=== PATIENT | male | born 1960 | race Caucasian/White ===

== ENCOUNTER → 2016-12-19 | Outpatient (CLI) | payer MEDICARE, MEDICAID ==
[~2016-12-19] MED LIST: ALBU17IN2 INH; DOCU10CA PO; KLON0.5T PO; LITH600C PO; PROZ10CA7 PO; RANI15TA PO; TIMOXEOPD OS; no home medications
== END ==
LOC: M SMT 10:11
PROVIDERS: ATTEND Nurse Practitioner Women's Health
DX: Z12.5 Encounter for screening for malignant neoplasm of prostate (principal)
CPT/HCPCS: 36415; 51798; G0103; G0463

== ENCOUNTER → 2017-01-12 | Outpatient (CLI) | payer MEDICARE, MEDICAID ==
[2017-01-12 11:53] LABS: MEAN CORPUSCULAR VOLUME 83.6 fl (80.0-96.0); WHITE BLOOD COUNT 5.2 K/mm3 (4.0-10.0)
[2017-01-12 11:54] LABS: MEAN CORPUSCULAR HEMOGLOBIN 30.7 pg (27.0-33.0); MEAN CORPUSCULAR HGB CONC 36.7 g/dl (32.0-36.5); RED CELL DISTRIBUTION WIDTH 12.7 % (11.5-14.5)
[2017-01-12 13:28] LABS: ALBUMIN 4.1 GM/DL (3.2-5.2); ALBUMIN/GLOBULIN RATIO 1.21 (1.00-1.93); ALKALINE PHOSPHATASE 84 U/L (45-117); ALT/SGPT 30 U/L (12-78); ANION GAP 9 MEQ/L (8-16); AST/SGOT 16 U/L (15-37); BILIRUBIN,TOTAL 0.5 MG/DL (0.2-1.0); BLOOD UREA NITROGEN 13 MG/DL (7-18); CALCIUM LEVEL 9.2 MG/DL (8.5-10.1); CARBON DIOXIDE LEVEL 29 MEQ/L (21-32); CHLORIDE LEVEL 108 MEQ/L (98-107); CHOLESTEROL LEVEL 181 MG/DL (<200); CREATININE FOR GFR 1.13 MG/DL (0.70-1.30); GLOMERULAR FILTRATION RATE > 60.0 (>56); GLUCOSE, FASTING 104 MG/DL (70-105); POTASSIUM SERUM 3.9 MEQ/L (3.5-5.1); SODIUM LEVEL 146 MEQ/L (136-145); TOTAL PROTEIN 7.5 GM/DL (6.4-8.2); TRIGLYCERIDES LEVEL 86 MG/DL (<150)
== END ==
LOC: M LAB 10:44
PROVIDERS: ATTEND Nurse Practitioner Family
DX: K58.9 Irritable bowel syndrome, unspecified (principal); E78.00 Pure hypercholesterolemia, unspecified

== ENCOUNTER → 2017-03-27 | Outpatient (CLI) | payer MEDICARE, MEDICAID ==
--- NOTE | 2017-03-27 09:54 | PFTRPT ---
Site: [facility] [facility], [address] [place], [address] ID: [id number] Name: MARTIN ULLOA Doctor: Tres Harmon MD Tech: Mejia Borjas RRT Age: 57 Sex: Male Race: Height: 68.00 Inches Weight: 163.00 Lbs BSA: 1.87 Diagnosis: J45.40 Pre Test Comments: Pt states he took Advair this morning test meet the ATS standards for acceptability and repeatability. Pt had slight anxiety attack during testing. Pre-Bronch Post-Bronch Pred Actual %Pred Actual %Chng SPIROMETRY FVC (L) 4.47 4.23 94 FEV1 (L) 3.39 3.42 100 FEV1/FVC (%) 76 81 106 FEF 25% (L/sec) 6.93 6.60 95 FEF 50% (L/sec) 4.32 5.04 116 FEF 75% (L/sec) 1.34 1.37 102 FEF 25-75% (L/sec) 2.84 3.60 126 FEF Max (L/sec) 8.85 6.64 75 FIVC (L) 3.63 FIF 50% (L/sec) 4.74 5.09 107 FIF Max (L/sec) 5.10 MVV (L/min) 135 115 85 LUNG VOLUMES SVC (L) 4.48 4.31 96 IC (L) 3.20 4.01 125 ERV (L) 1.28 0.30 23 TGV (L) 3.39 2.84 83 RV (Pleth) (L) 2.11 2.55 120 TLC (Pleth) (L) 6.59 6.85 103 RV/TLC (Pleth) (%) 32 37 116 DIFFUSION DLCOunc (ml/min/mmHg) 27.81 26.58 95 DL/VA (ml/min/mmHg/L) 4.22 4.32 102 VA (L) 6.59 6.15 93 AIRWAYS RESISTANCE Raw (cmH2O/L/s) 1.45 1.19 82 Gaw (L/s/cmH2O) 1.03 0.84 81 sRaw (cmH2O*s) 4.76 4.24 89 sGaw (1/cmH2O*s) 0.20 0.24 117
== END ==
LOC: M CARPUL 08:42
PROVIDERS: ATTEND Family Medicine
DX: J45.909 Unspecified asthma, uncomplicated (principal)

== ENCOUNTER → 2018-02-23 | Outpatient (CLI) | payer MEDICARE, MEDICAID ==
[2018-02-23 18:03] LABS: FERRITIN 235 NG/ML (26-388); IRON (FE) 74 UG/DL (65-175); PERCENT SATURATION 26.2 % (19.7-50.0); TOTAL IRON BINDING CAPACITY 282 UG/DL (250-450)
[2018-02-25 08:18] LABS: TRANSFERRIN 223 mg/dL (200-370)
== END ==
LOC: M LAB 16:54
DX: G25.81 Restless legs syndrome (principal)
CPT/HCPCS: 83550

== ENCOUNTER → 2018-10-05 | Outpatient (REF) | payer MEDICARE, MEDICAID ==
[2018-10-05 14:22] LABS: BASO % 0.7 % (0.0-1.0); EOS # 0.2 10^3/uL (0.0-0.50); EOS % 2.9 % (0.0-3.0); HEMATOCRIT 45.6 % (42.0-52.0); HEMOGLOBIN 15.5 g/dl (13.5-17.5); LYMPH # 1.1 10^3/uL (1.5-4.5); MEAN CORPUSCULAR HEMOGLOBIN 29.4 pg (27.0-33.0); MEAN CORPUSCULAR VOLUME 86.5 fl (80.0-96.0); MONO # 0.4 10^3/uL (0.0-0.8); MONO % 6.8 % (0.0-5.0); NEUTROPHILS # 4.1 10^3/uL (1.8-7.7); NEUTROPHILS % 70.4 % (36.0-66.0); PLATELET COUNT, AUTOMATED 201 10^3/uL (150-450); RED BLOOD COUNT 5.27 10^6/uL (4.30-6.10); WHITE BLOOD COUNT 5.9 10^3/uL (4.0-10.0)
[2018-10-05 14:33] LABS: BLOOD UREA NITROGEN 15 MG/DL (7-18); CALCIUM LEVEL 9.4 MG/DL (8.8-10.2); CARBON DIOXIDE LEVEL 29 MEQ/L (21-32); CHLORIDE LEVEL 108 MEQ/L (98-107); CREATININE FOR GFR 1.04 MG/DL (0.70-1.30); GLOMERULAR FILTRATION RATE > 60.0 (>49); GLUCOSE, FASTING 110 MG/DL (70-100); POTASSIUM SERUM 4.2 MEQ/L (3.5-5.1); SODIUM LEVEL 142 MEQ/L (136-145)
[2018-10-05 14:34] LABS: ALBUMIN 4.5 GM/DL (3.2-5.2); ALT/SGPT 28 U/L (12-78); BILIRUBIN,TOTAL 0.7 MG/DL (0.2-1.0); CHOLESTEROL LEVEL 158 MG/DL (<200); CHOLESTEROL RISK RATIO 3.224 (<5); FREE T4 1.08 NG/DL (0.76-1.46); HDL CHOLESTEROL 49 MG/DL (>40); LDL CHOLESTEROL 97 MG/DL (<100); NON-HDL-C 109 MG/DL; TOTAL PROTEIN 7.2 GM/DL (6.4-8.2); TRIGLYCERIDES LEVEL 60 MG/DL (<150)
[2018-10-05 14:37] LABS: AMORPHOUS SEDIMENT LARGE (NEGATIVE); APPEARANCE, URINE TURBID (CLEAR); BACTERIA, URINE AUTO NEGATIVE (NEGATIVE); BILIRUBIN, URINE AUTO NEGATIVE (NEGATIVE); BLOOD, URINE BLOOD 1+ (NEGATIVE); COLOR, URINE YELLOW (YELLOW); GLUCOSE, URINE (UA) AUTO NEGATIVE (NEGATIVE); KETONE, URINE AUTO NEGATIVE (NEGATIVE); LEUKOCYTE ESTERASE, URINE AUTO NEGATIVE (NEGATIVE); MUCUS, URINE SMALL (NEGATIVE); NITRITE, URINE AUTO NEGATIVE (NEGATIVE); PROTEIN, URINE AUTO NEGATIVE (NEGATIVE); RBC, URINE AUTO 0 /HPF (0-3); SPECIFIC GRAVITY URINE AUTO 1.023 (1.002-1.035); SQUAMOUS EPITHELIAL CELL UR AU 0 /HPF (0-6); WBC, URINE AUTO 0 /HPF (0-3)
[2018-10-05 15:05] LABS: HEMOGLOBIN A1c 5.3 %
[2018-10-07 00:06] LABS: Lyme Disease IgG/IgM Antibodie <0.91 ISR (0.00-0.90); Lyme Disease IgM Ab Quantitati <0.80 index (0.00-0.79)
== END ==
LOC: M LAB REF 12:19
PROVIDERS: ATTEND Family Medicine
DX: Z12.5 Encounter for screening for malignant neoplasm of prostate (principal); Z13.228 Encounter for screening for other metabolic disorders; F32.9 Major depressive disorder, single episode, unspecified; Z79.51 Long term (current) use of inhaled steroids; Z79.899 Other long term (current) drug therapy
CPT/HCPCS: 80053; 80061; 81001; 82306; 83036; 84439; 84443; 85025; 86617; G0103

== ENCOUNTER 2018-10-22 20:37 | Emergency (ER) | payer MEDICARE, MEDICAID ==
[~2018-10-22] VITALS: Ht 172.7 cm; Wt 72.7 kg
[2018-10-22] MEDS ORDERED: BETA0.5S9 OP (20:42)
[2018-10-22] MEDS ORDERED: FLOV100A3 INH (20:42)
[2018-10-22] MEDS ORDERED: hydrOXYzine 25 MG TAB PO STA (21:23)
[2018-10-22] MEDS ORDERED: HYDR-3363 PO (22:34)
[2018-10-22 23:20] VITALS: BP 110/71
== END 2018-10-22 23:21 | disposition home or self-care (01) ==
LOC: M ED 20:37
DX: F41.1 Generalized anxiety disorder (principal); F33.9 Major depressive disorder, recurrent, unspecified; N40.0 Benign prostatic hyperplasia without lower urinary tract symptoms; Z79.899 Other long term (current) drug therapy; Z88.5 Allergy status to narcotic agent

== ENCOUNTER 2019-02-27 12:50 | Observation (INO) | payer MEDICARE, MEDICAID ==
[~2019-02-27] VITALS: Ht 172.7 cm; Wt 69.0 kg
[~2019-02-27 12:50] MED LIST changes: +BETA0.5S9 OP; +FLOV100A3 INH; +HYDR-3363 PO
[2019-02-27] MEDS ORDERED: METH2.5T48 PO (12:57)
[2019-02-27] MEDS ORDERED: BETI1SOL OP (12:57)
[2019-02-27] MEDS ORDERED: ETAN50SY SC (12:57)
[2019-02-27] MEDS ORDERED: LATA0.0015 OP (12:57)
[2019-02-27] MEDS ORDERED: ALLO100T PO (12:57)
[2019-02-27] MEDS ORDERED: VALT500T PO (12:57)
[2019-02-27] MEDS ORDERED: OMEP-218 PO (12:57)
[2019-02-27] MEDS ORDERED: BREO1INH INH (12:57)
[2019-02-27] MEDS ORDERED: GABA-845 PO (12:57)
[2019-02-27] MEDS ORDERED: NS 1,000 ML IV ONE (14:15)
[2019-02-27 14:30] LABS: HEMATOCRIT 43.2 % (42.0-52.0); HEMOGLOBIN 14.8 g/dl (13.5-17.5); MEAN CORPUSCULAR HGB CONC 34.3 g/dl (32.0-36.5); MEAN CORPUSCULAR VOLUME 87.4 fl (80.0-96.0); PLATELET COUNT, AUTOMATED 179 10^3/uL (150-450); RED BLOOD COUNT 4.94 10^6/uL (4.30-6.10); WHITE BLOOD COUNT 6.1 10^3/uL (4.0-10.0)
[2019-02-27 14:45] LABS: AMPHETAMINES LEVEL URINE NEGATIVE (NEGATIVE); BARBITURATES URINE NEGATIVE (NEGATIVE); BENZODIAZEPINES URINE NEGATIVE (NEGATIVE); CANNABINOIDS URINE NEGATIVE (NEGATIVE); COCAINE METABOLITE URINE NEGATIVE (NEGATIVE); METHADONE URINE NEGATIVE (NEGATIVE); OPIATES URINE NEGATIVE (NEGATIVE); PHENCYCLIDINE URINE NEGATIVE (NEGATIVE)
[2019-02-27 14:49] LABS: ALT/SGPT 22 U/L (12-78); BILIRUBIN,TOTAL 0.7 MG/DL (0.2-1.0); BLOOD UREA NITROGEN 15 MG/DL (7-18); CALCIUM LEVEL 9.1 MG/DL (8.8-10.2); CARBON DIOXIDE LEVEL 29 MEQ/L (21-32); CHLORIDE LEVEL 108 MEQ/L (98-107); CK-MB VALUE MASS 1.3 NG/ML (<3.6); CPK CREATINE PHOSPHOKINASE 92 U/L (39-308); CREATININE FOR GFR 1.05 MG/DL (0.70-1.30); ETHYL ALCOHOL (ETHANOL) < 0.003 % (0.000-0.010); GLOMERULAR FILTRATION RATE > 60.0 (>49); GLUCOSE, FASTING 117 MG/DL (70-100); MB/CK RELATIVE INDEX 1.41 (< OR =4); POTASSIUM SERUM 3.8 MEQ/L (3.5-5.1); SODIUM LEVEL 142 MEQ/L (136-145); TOTAL PROTEIN 7.1 GM/DL (6.4-8.2); TROPONIN I < 0.02 NG/ML (< 0.10)
--- NOTE | 2019-02-27 14:57 | REP ---
Two-view chest: 02/27/2019. Indication: Chest trauma. Comparison: 07/17/2014. Findings: The lungs are clear. There is no pleural effusion or pneumothorax. The cardiomediastinal silhouette is unremarkable. Impression: Clear lungs. Electronically Signed by Donaldo Bowman DO 02/27/2019 02:49 P
--- NOTE | 2019-02-27 15:01 | REP ---
CT brain: 02/27/2019. Indication: Head trauma. Comparison: None. Technique: Unenhanced axial CT images of the brain were obtained from skull base to vertex. Findings: There is no acute intracranial hemorrhage, acute cortical infarction, mass effect, hydrocephalus or acute calvarial fracture. Impression: No acute intracranial process. Electronically Signed by Donaldo Bowman DO 02/27/2019 02:53 P
--- NOTE | 2019-02-27 15:13 | REP ---
CT cervical spine: 02/27/2019. Indication: Cervical spine trauma. Comparison: None. Technique: Unenhanced axial CT images of the cervical spine were obtained with coronal and sagittal reconstructions provided. Findings: There is no acute fracture, subluxation or dislocation. There is straightening of the cervical lordosis. No hemorrhage or additional acute post traumatic sequelae are detected within the spinal canal. Impression: No acute post traumatic osseous injury of the cervical spine detected. Electronically Signed by Donaldo Bowman DO 02/27/2019 03:05 P
[2019-02-27] MEDS ORDERED: OLOP0.2S OU (16:19)
[2019-02-27] MEDS ORDERED: MONT10TA2 PO (16:19)
[2019-02-27] MEDS ORDERED: PROAAER10 INH (16:19)
--- NOTE | 2019-02-27 17:28 | ECGEPIP ---
[facility] - ED Test Date: 2019-02-27 Pat Name: MARTIN ULLOA Department: Room: - Gender: Male Tower Operator: ct : 1960 Requested By: ANDRES Zhang Order Number: [id number] Reading MD: Gabriel Henderson Measurements Intervals [place] Rate: 61 P: 80 DC: 169 QRS: 37 QRSD: 121 T: 69 QT: 400 QTc: 404 Interpretive Statements SINUS RHYTHM INCOMPLETE RIGHT BUNDLE BRANCH BLOCK NO PRIORS FOR COMPARISON Electronically Signed on 02-27-2019 17:27:58 EDT by Gabriel Henderson
[2019-02-27] MEDS ORDERED: ACETAMINOPHEN 500 MG TAB PO PRN (18:15)
--- NOTE | 2019-02-27 18:17 | HPEPDOC ---
General Date of Admission 02/27/19 Date of Service: Feb 27, 2019 Chief Complaint The patient is a 59-year-old male admitted with a reason for visit of Several Near Syncope Episodes. History of Present Illness 59 year old male with PMH of GERD, Asthma, JEANNETTE, bipolar with suicidal ideas in past, panic disorder with agarophobia, alcohol and substance abuse in 1980s, nephrolithiasis, BPH, glaucoma lives alone came to the ED for recurrent episodes of syncopal and presyncopal episodes over the past 1 week. The first episode happened 1.5 week ago when he had bent forward to reach for his shoes and bumped his head under the table. Since then he has been having episodes of severe headache and blacking out when he would slump forward and hit his head on any surface in front of him. this happened 2 days ago in the kitchen while he was standing he reached to the ride side with his right hand for a thing felt a severe sharp headache then he blacked out and hit his head on the kitchen counter. Last night he was sitting in front of his computer suddenly again had the severe headache and he passed out and hit his head on the keyboard and fell out of the chair to the floor and hit his head again on the floor. When he came too he was on the floor. He had 2 bumps on his head. No urinary or stool incontinence. The past week he has been having off and on episodes of headache which is new for him and yesterday whole day he had headache worse during the episode of syncope . He also complained of blurry vision on the right eye specially on the side and the upper vision field. This morning also he had the headache but less intense. His orthostats was negative in the ED. EKG sinus rhythm. CT head negative. He was admitted for evaluation for recurrent episodes of syncope. Home Medications Scheduled Betaxolol Hcl (Betaxolol HCl) 0.5% 5ML Drops, 1 DROP OP BID, (Reported) Fluticasone Propionate (Flovent Diskus) 100 Mcg Blst.w.dev, 1 PUFF INH BID, (Reported) Montelukast Sodium (Montelukast Sodium) 10 Mg Tablet, 10 MG PO DAILY, (Reported) Scheduled PRN Albuterol Sulfate (Proair Hfa) 8.5 Gm Hfa.aer.ad, 2 PUFF INH Q4H PRN for SOB/WHEEZING, (Reported) Olopatadine HCl (Olopatadine HCl) 0.2% 2.5ML Drops, 1 DROP OU DAILY PRN for SEASONAL ALLERGIES, (Reported) Ranitidine Hcl (Ranitidine HCl) 150 Mg Tab, 150 MG PO BID PRN for REFLUX/ HEARTBURN, (Reported) Allergies Coded Allergies: codeine (Verified Adverse Reaction, Mild, GI, 10/22/18) Past Medical History Medical History GERD, Asthma, JEANNETTE, bipolar with suicidal ideas in past, panic disorder wt agarophobia, alcohol and substance abuse in 1980s, nephrolithiasis, BPH, glaucoma Family History Significant Family History: Cancer (mother), Diabetes (brother), Heart disease (father and mother) Social History * Smoker: Denies Alcohol: sober (recoverring alcoholic quit in 2004) Drugs: denies A-FIB/CHADSVASC A-FIB History Current/History of A-Fib/PAF?: No Review of Systems Constitutional: Denies: Chills, Fever, Night Sweats Eyes: Reports: Pain, Vision change ENT: Reports: Head Aches Skin: Denies: Rash, Lesions, Breakdown Pulmonary: Denies: Dyspnea, Cough Cardiovascular: Denies: Chest Pain, Palpitations, Orthopnea, Paroxysmal Noc. Dyspnea, Lt Headedness Gastrointestinal: Reports: Nausea; Denies: Vomiting, Abdominal Pain, Diarrhea, Constipation Genitourinary: Reports: Frequency; Denies: Dysuria, Incontinence, Retention Hematologic: Denies: Bruising, Bleeding Excessively Musculoskeletal: Denies: Neck Pain, Back Pain, Joint Pain, Muscle Pain, Spasms Neurological: Reports: Incoordination Psych: Reports: Mood Normal; Denies: Depression, Memory Issues Physical Examination General Exam: Positive: Alert, Cooperative, No Acute Distress Eye Exam: Positive: PERRLA, Conjunctiva & lids normal, EOMI; Negative: Sclera icteric ENT Exam: Positive: Atraumatic, Mucous membr. moist/pink, Pharynx Normal Neck Exam: Positive: Supple, +2 carotid pulse wo bruit; Negative: JVD, thyromegaly Chest Exam: Positive: Clear to auscultation, Normal air movement Heart Exam: Positive: Rate Normal, Regular Rhythm, Normal S1, Normal S2; Negative: Murmurs, Rubs Telemetry: Positive: No significant arrhythmia Abdomen Exam: Positive: Normal bowel sounds, Soft; Negative: Tenderness, Hepatospenomegaly Extremity Exam: Negative: Clubbing, Cyanosis, Edema Skin Exam: Positive: Nl turgor and temperature; Negative: Breakdown, Lesion Neuro Exam: Positive: Normal Gait, Normal Speech, Strength at 5/5 X4 ext, Normal Tone Vital Signs Vital Signs Date Time Temp Pulse Resp B/P (MAP) Pulse Ox O2 Delivery O2 Flow Rate FiO2 02/27/19 15:42 98.7 02/27/19 15:35 53 98 02/27/19 15:30 142/71 (94) 02/27/19 14:30 18 Room Air Laboratory Data Labs 24H Laboratory Tests 2 02/27/19 14:07: Nucleated Red Blood Cells % (auto) 0.0, Urine Color YELLOW, Urine Appearance CLEAR, Urine pH 6.0, Urine Specific [place] 1.008, Urine Protein NEGATIVE, Urine Glucose (UA) NEGATIVE, Urine Ketones NEGATIVE, Urine Blood 1+H, Urine Nitrite NEGATIVE, Urine Bilirubin NEGATIVE, Urine Urobilinogen 0.2, Urine Leukocyte Esterase NEGATIVE, Urine WBC (Auto) 1, Urine RBC (Auto) 3, Urine Hyaline Casts (Auto) 0, Urine Bacteria (Auto) NEGATIVE, Urine Squamous Epithelial Cells 0, Urine Amorphous Sediment SMALLH, Urine Mucus (Auto) SMALL, Urine Sperm (Auto) , Anion Gap 5L, Glomerular Filtration Rate > 60.0, Calcium Level 9.1, Total Bilirubin 0.7, Aspartate Amino Transf (AST/SGOT) 10, Alanine Aminotransferase (ALT/SGPT) 22, Alkaline Phosphatase 89, Total Creatine Kinase 92, Creatine Kinase MB 1.3, Creatine Kinase MB Relative Index 1.41, Troponin I < 0.02, Total Protein 7.1, Albumin 4.0, Albumin/Globulin Ratio 1.29, Urine Opiates Screen NEGATIVE, Urine Methadone Screen NEGATIVE, Urine Barbiturates Screen NEGATIVE, Urine Phencyclidine Screen NEGATIVE, Urine Amphetamines Screen NEGATIVE, Urine Benzodiazepines Screen NEGATIVE, Urine Cocaine Metabolite Screen NEGATIVE, Urine Cannabinoids Screen NEGATIVE, Ethyl Alcohol Level < 0.003 CBC/BMP Laboratory Tests 02/27/19 14:07 Assessment/Plan 59 year old male with PMH of GERD, Asthma, JEANNETTE, bipolar with suicidal ideas in past, panic disorder with agarophobia, alcohol and substance abuse in 1980s, nephrolithiasis, BPH, glaucoma lives alone came to the ED for recurrent episodes of syncopal episodes over the past 1.5 week associated with severe headache. The past week he has been having off and on episodes of headache which is new for him and yesterday whole day he had headache worse during the episode of syncope . He also complained of blurry vision on the right eye specially on the side and the upper vision field. He also has sensation of disbalance and prroblem with walking . Says feels very shaky. This morning also he had the headache but less intense. His orthostats was negative in the ED. EKG sinus rhythm. CT head negative. He was admitted for evaluation for recurrent episodes of syncope. Recurrent syncope with headache will monitor on telemetry , MRI brain, Echo, orthostatic vitals. Neurology consult. Headache rule out migraine. will give tylenol for pain Asthma no issues continue home meds flovent and singulair. GERD famotidine BPH not on any meds. Glaucoma on th left eye and cataract in the right eye continue home eye drops if available. Plan / VTE VTE Prophylaxis Ordered?: Yes LEONEL ALDRIDGE MD Feb 27, 2019 16:48
[2019-02-27] MEDS ORDERED: LORazepam 2 MG/ML VIAL (J2060) IV ONE (19:30)
[2019-02-27 20:35] VITALS: BP 96/68
[2019-02-27] MEDS ORDERED: LORazepam 0.5 MG TAB PO SCH (21:00)
[2019-02-27] MEDS: FLUTICASONE HFA 110 MCG 12 GM INHALER (FLOVENT) INH SCH (21:35)
[2019-02-27] MEDS: FAMOTIDINE 20 MG TAB PO SCH (22:05)
[2019-02-27] MEDS: TIMOLOL MALEATE 0.5% OPHTH SOLN 5 ML OU SCH (23:41)
[2019-02-27] MEDS: LORazepam 0.5 MG TAB PO SCH (23:43)
[2019-02-28] VITALS: BP 118/81
[2019-02-28 04:00] VITALS: BP 113/68
[2019-02-28] MEDS: FLUTICASONE HFA 110 MCG 12 GM INHALER (FLOVENT) INH SCH ×2 (07:45→19:18)
[2019-02-28 08:31] VITALS: BP 124/78
--- NOTE | 2019-02-28 09:03 | CR ---
DATE OF CONSULTATION: 02/28/2019 REFERRING PROVIDER: Dr. Yady Harrington REASON FOR CONSULTATION: Syncope. Alfie Marie is a 59-year-old male with past medical history significant for bipolar disorder, major depression with suicidal ideations in the past, panic disorder with agoraphobia, and history of alcohol and substance abuse in the past. The patient presents with a chief complaint of experiencing an episode of syncope approximately a week ago. He has been having episodes of near syncope when he has severe panic attacks. He states he gets extremely lightheaded and dizzy. He has tunnel vision. The patient then has episode where he is completely blacked out. He usually tries to fight these from progressing, but states over the last week or so he has not been able to do so. He drinks plenty of water, he goes for walks regularly. He is quite anxious in the emergency department. The patient did have a head CT which was negative. He is going to be admitted for syncope workup and electroencephalogram (EEG) has been ordered. He denies any weakness or numbness throughout the body at this time. He denies any headache. At the present time, he states sometimes these episodes of syncope have been associated with a severe sharp headache and then he blacks out. REVIEW OF SYSTEMS: 14-point review of systems obtained and is negative except as per history of present illness (HPI). MEDICATIONS: Betaxolol 0.5% 5 mL drops twice a day, fluticasone 100 mcg 1 puff inhaled twice a day, Montelukast 10 mg p.o. daily, albuterol 2 puffs inhaled every 4 hours as needed, olopatadine 0.2% 2.5 mL drop both eyes you daily p.r.n. allergies, ranitidine 150 mg by mouth twice a day acid reflux. ALLERGIES: - CODEINE PAST MEDICAL HISTORY: Gastroesophageal reflux disease, asthma, generalized anxiety disorder with agoraphobia, bipolar disorder with suicidal ideations in the past, major depression, panic disorder, alcohol and substance abuse 1990s, nephrolithiasis, benign prostatic hypertrophy (BPH), glaucoma. FAMILY HISTORY: Noncontributory. SOCIAL HISTORY: The patient denies use of any alcohol, tobacco or illicit drugs. Quit alcohol in 2004. PHYSICAL EXAMINATION: Blood pressure is 132/82, pulse rate is 86, respiratory rate is 18, temperature is 98.7 degrees Fahrenheit, oxygenation 100% on room air. Current height 5 feet 8 inches, current weight is 70 kg. The patient is awake, alert, oriented to person, place and time. Speech, language comprehension, repetition are intact. Pupils are 2.5 mm round, reactive to light. Extraocular movements are intact in all directions without nystagmus. Sensation V1, V2, V3 is intact to light touch. No facial asymmetry to activation. Palate elevates symmetrically. Tongue is midline. No weakness of sternocleidomastoids bilaterally. Hearing is subjectively equal to finger rub. Strength is 5/5 including bilateral deltoids, biceps, triceps, handgrip, iliopsoas, quadriceps, anterior tibialis. Deep tendon reflexes are 2s throughout with reduced Achilles reflexes. Sensory is intact to light touch in all four extremities. Coordination without any significant gross ataxia or dysmetria. Gait is normal. ASSESSMENT: 59-year-old male with episodes of syncope and near-syncope, especially during panic disorder. PLAN: Agree with MRI brain without contrast. Agree with telemetry monitoring. Obtain EEG. Hold off on starting any antiepileptic medications. Consider compression stockings. Orthostatics checked in the emergency department found to be negative. The patient can follow up in [facility] once inpatient workup is complete.
[2019-02-28] MEDS: FAMOTIDINE 20 MG TAB PO SCH ×2 (09:28→20:31)
[2019-02-28] MEDS: MONTELUKAST 10 MG TAB PO SCH (09:28)
[2019-02-28] MEDS: ENOXAPARIN 40 MG/0.4 ML SYRINGE (J1650) SC SCH (09:29)
[2019-02-28] MEDS: TIMOLOL MALEATE 0.5% OPHTH SOLN 5 ML OU SCH (09:30)
[2019-02-28 12:27] VITALS: BP 137/70
[2019-02-28 15:40] VITALS: BP 128/76
--- NOTE | 2019-02-28 16:58 | REP ---
Five views lumbar spine: 02/28/2019. Indication: Lumbar spine trauma. Comparison: None. Findings: There is no acute fracture, subluxation or dislocation. Vertebral body alignment is anatomic. No erosive osseous lesions are present. Impression: No acute osseous injury of the lumbar spine. Electronically Signed by Donaldo Bowman DO 02/28/2019 04:49 P
--- NOTE | 2019-02-28 18:20 | IPNPDOC ---
Subjective Date Seen The patient was seen on 02/28/19. Subjective Chief Complaint/HPI Calmer this morning but said he wont be able to do the MRI. The closed space was giving him panic attack and he was blacking out there. He was doing his breathing exercises but nothing was helping. Denies any headache, denies any weakness . No difficulty in walking. Objective Physical Examination General Exam: Positive: Alert, Cooperative, No Acute Distress Eye Exam: Positive: PERRLA, Conjunctiva & lids normal, EOMI; Negative: Sclera icteric ENT Exam: Positive: Atraumatic, Mucous membr. moist/pink, Pharynx Normal Neck Exam: Positive: Supple, +2 carotid pulse wo bruit; Negative: JVD, thyromegaly Chest Exam: Positive: Clear to auscultation, Normal air movement Heart Exam: Positive: Rate Normal, Regular Rhythm, Normal S1, Normal S2; Negative: Murmurs, Rubs Telemetry: Positive: No significant arrhythmia Abdomen Exam: Positive: Normal bowel sounds, Soft; Negative: Tenderness, Hepatospenomegaly Extremity Exam: Negative: Clubbing, Cyanosis, Edema Skin Exam: Positive: Nl turgor and temperature; Negative: Breakdown, Lesion Neuro Exam: Positive: Normal Gait, Normal Speech, Strength at 5/5 X4 ext, Normal Tone Assessment /Plan Assessment 59 year old male with PMH of GERD, Asthma, JEANNETTE, bipolar with suicidal ideas in past, panic disorder with agarophobia, alcohol and substance abuse in 1980s, nephrolithiasis, BPH, glaucoma lives alone came to the ED for recurrent episodes of syncopal episodes over the past 1.5 week associated with severe headache. The past week he has been having off and on episodes of headache which is new for him and yesterday whole day he had headache worse during the episode of syncope . He also complained of blurry vision on the right eye specially on the side and the upper vision field. He also has sensation of disbalance and prroblem with walking . Says feels very shaky. This morning also he had the headache but less intense. His orthostats was negative in the ED. EKG sinus rhythm. CT head negative. He was admitted for evaluation for recurrent episodes of syncope. Recurrent syncope with headache Syncopal / presyncopal episodes most probably related to panic attacks. However will try to rule out other causes of syncope. Patient could not do MRI as he was having panic attack in the MRI machine and said he blacked out. No arrhythmias on telemetry just shows sinus bradycardia. orthostats negative. echo and EEG done pending results [address] head was done with was negative also. Neurology consult appreciated. Headache rule out migraine. will give tylenol for pain Asthma no issues continue home meds flovent and singulair. GERD famotidine BPH not on any meds. Glaucoma on the left eye and cataract in the right eye continue home eye drops if available. Plan/VTE VTE Prophylaxis Ordered?: Yes VS, I&O, 24H, Fishbone Vital Signs/I&O Vital Signs Date Time Temp Pulse Resp B/P (MAP) Pulse Ox O2 Delivery O2 Flow Rate FiO2 02/28/19 15:40 97.6 59 18 128/76 (93) 100 Room Air 02/28/19 03:00 2.0 I&O- Last 24 Hours up to 6 AM 02/28/19 06:00 Intake Total 1560 ml Balance 1560 ml LEONEL ALDRIDGE MD Feb 28, 2019 18:20
[2019-02-28 20:00] VITALS: BP 114/72
[2019-02-28] MEDS: LORazepam 0.5 MG TAB PO SCH (20:31)
[2019-02-28] MEDS: BETAXOLOL 0.5% OD SCH (20:32)
[2019-02-28] MEDS ORDERED: LORazepam 0.5 MG TAB PO SCH (21:00)
--- NOTE | 2019-02-28 21:33 | ECHO ---
DATE OF PROCEDURE: 02/28/2019 AGE: 59 GENDER: Male HEIGHT: 68 inches WEIGHT: 154 pounds BODY SURFACE AREA: 1.83 m2 PATIENT LOCATION: Inpatient, ICU, room 3201 REFERRING PHYSICIAN: Yady Harrington MD INDICATIONS: Syncope. 2-D MEASUREMENTS: RV: 3.3 cm LV: 4.1 cm Septum: 1.1 cm Posterior wall: 1.0 cm Aortic root: 3.8 cm LA: 3.6 cm LVEF: 65% DOPPLER MEASUREMENTS: AV: 1.2 m/s LVOT: 1.1 m/s LVOT diameter: 2.1 cm MV-E: 98, A: 76, EA ratio: 1.3 Early mitral deceleration time: 158 ms E prime medial: 7.6, A prime medial: 12, E prime lateral: 8 Average EE prime ratio: 12.8 PCWP: 17.5 mmHg PV: 1.0 m/s Pulmonary artery acceleration time: 158 ms PASP: 13 mmHg IVC: 1.7 cm COMMENTS Normal sinus rhythm without intraventricular conduction disturbance. M-mode and two-dimensional echocardiography was performed with pulsed, continuous wave, color flow and tissue Doppler studies. Normal left ventricular size, wall thickness and wall motion. Left atrial size upper limits of normal with normal Doppler assessment of LV diastolic function. Normal right heart chamber sizes and motion and estimated pulmonary arterial pressure. Normal IVC size and collapse against an elevated central venous pressure. Normal appearing and functioning valvular structures. No apparent intracardiac mass or pericardial effusion.
[2019-03-01] VITALS (7 sets, daily range): BP systolic 104–130; BP diastolic 61–72
[2019-03-01] MEDS: FLUTICASONE HFA 110 MCG 12 GM INHALER (FLOVENT) INH SCH (07:24)
[2019-03-01] MEDS: MONTELUKAST 10 MG TAB PO SCH (08:17)
[2019-03-01] MEDS: BETAXOLOL 0.5% OD SCH (08:19)
[2019-03-01] MEDS: FAMOTIDINE 20 MG TAB PO SCH (08:19)
[2019-03-01] MEDS: ENOXAPARIN 40 MG/0.4 ML SYRINGE (J1650) SC SCH (08:19)
--- NOTE | 2019-03-02 14:21 | DS.PDOC ---
Discharge Summary General Date of Admission Feb 27, 2019 at 12:51 Date of Discharge 03/01/19 Discharge Summary PROCEDURES PERFORMED DURING STAY: Echo: Normal sinus rhythm without intraventricular conduction disturbance. M-mode and two-dimensional echocardiography was performed with pulsed, continuous wave, color flow and tissue Doppler studies. Normal left ventricular size, wall thickness and wall motion. Left atrial size upper limits of normal with normal Doppler assessment of LV diastolic function. Normal right heart chamber sizes and motion and estimated pulmonary arterial pressure. Normal IVC size and collapse against an elevated central venous pressure. Normal appearing and functioning valvular structures. No apparent intracardiac mass or pericardial effusion EEG: Results not yet available follow up with Neurology DISCHARGE DIAGNOSES: Panic attacks causing syncope / presycope SECONDARY DIAGNOSIS: GERD, Asthma, JEANNETTE, bipolar with suicidal ideas in past, panic disorder with agarophobia, alcohol and substance abuse in 1980s, nephrolithiasis, BPH, glaucoma COMPLICATIONS/CHIEF COMPLAINT: Syncope. HISTORY OF PRESENT ILLNESS: See history and physical HOSPITAL COURSE: 59 year old male with PMH of GERD, Asthma, JEANNETTE, bipolar with suicidal ideas in past, panic disorder with agarophobia, alcohol and substance abuse in 1980s, nephrolithiasis, BPH, glaucoma lives alone came to the ED for r ecurrent episodes of syncopal episodes over the past 1.5 week associated with severe headache. The past week he has been having off and on episodes of headache which is new for him and yesterday whole day he had headache worse during the episode of syncope . He also complained of blurry vision on the right eye specially on the side and the upper vision field. He also has sensation of disbalance and problem with walking . Says feels very shaky. This morning also he had the headache but less intense. His orthostats was negative in the ED. EKG sinus rhythm. CT head negative. He was admitted for evaluation for recurrent episodes of syncope. Patient has been really stressed out as his only friend " Lisa" who lives next door to him is moving away. His friend also has been getting involved with heavy drugs and mixing with wrong people . So when she leaves at night and does not come home all night or the next day he becomes very anxious thinking that something bad has happened to her. The thought of her moving away is really stressing him out for the past couple of months and his anxiety has become uncontrolled. He had seen his counsellor and was prescribed prozac which made him worse so he did not want to take it after a month or so stopped it. He had asked for something else but his counsellor said it was the only thing he could prescribe for him. He has been blacking out frequently over the past week. Recurrent syncope with headache Syncopal / presyncopal episodes most probably related to panic attacks. However will try to rule out other causes of syncope. Patient could not do MRI as he was having panic attack in the MRI machine and said he blacked out. No arrhythmias on telemetry just shows sinus bradycardia. orthostats negative. echo negative. EEG done pending results follow up neurology [address] head was done with was negative also. Neurology consult appreciated. Asthma no issues continue home meds flovent and singulair. GERD famotidine BPH not on any meds. Glaucoma on the left eye and cataract in the right eye continue home eye drops if available. DISCHARGE MEDICATIONS: Please see below. ALLERGIES: Please see below. PHYSICAL EXAMINATION ON DISCHARGE: VITAL SIGNS: Please see below. General Exam: Positive: Alert, Cooperative, No Acute Distress Eye Exam: Positive: PERRLA, Conjunctiva & lids normal, EOMI; Negative: Sclera icteric ENT Exam: Positive: Atraumatic, Mucous membr. moist/pink, Pharynx Normal Neck Exam: Positive: Supple, +2 carotid pulse wo bruit; Negative: JVD, thyromegaly Chest Exam: Positive: Clear to auscultation, Normal air movement Heart Exam: Positive: Rate Normal, Regular Rhythm, Normal S1, Normal S2; Negative: Murmurs, Rubs Telemetry: Positive: No significant arrhythmia Abdomen Exam: Positive: Normal bowel sounds, Soft; Negative: Tenderness, Hepatospenomegaly Extremity Exam: Negative: Clubbing, Cyanosis, Edema Skin Exam: Positive: Nl turgor and temperature; Negative: Breakdown, Lesion Neuro Exam: Positive: Normal Gait, Normal Speech, Strength at 5/5 X4 ext, Normal Tone LABORATORY DATA: Please see below. ACTIVITY: [As tolerated]. DIET: Regular DISPOSITION: 01 Home, Self-Care. DISCHARGE INSTRUCTIONS: Follow up PMD in 1 to 2 weeks Follow up with Neurology in 3 to 4 weeks Follow up with own Counsellor. DISCHARGE CONDITION: [Stable]. TIME SPENT ON DISCHARGE: 35 minutes. Vital Signs/I&Os Vital Signs Date Time Temp Pulse Resp B/P (MAP) Pulse Ox O2 Delivery O2 Flow Rate FiO2 03/01/19 07:45 98.0 67 18 106/63 (77) 97 Room Air 02/28/19 03:00 2.0 I&O- Last 24 Hours up to 6 AM 03/02/19 06:00 Intake Total 480 ml Balance 480 ml Laboratory Data CBC/BMP Item Value Date Time White Blood Count 6.1 10^3/uL 02/27/19 1407 Red Blood Count 4.94 10^6/uL 02/27/19 1407 Hemoglobin 14.8 g/dl 02/27/19 1407 Hematocrit 43.2 % 02/27/19 1407 Mean Corpuscular Volume 87.4 fl 02/27/19 1407 Mean Corpuscular Hemoglobin 30.0 pg 02/27/19 1407 Mean Corpuscular Hemoglobin Concent 34.3 g/dl 02/27/19 1407 Red Cell Distribution Width 12.6 % 02/27/19 1407 Platelet Count 179 10^3/uL 02/27/19 1407 Nucleated Red Blood Cells % (auto) 0.0 % 02/27/19 1407 Sodium Level 142 MEQ/L 02/27/19 1407 Potassium Level 3.8 MEQ/L 02/27/19 1407 Chloride Level 108 MEQ/L H 02/27/19 1407 Carbon Dioxide Level 29 MEQ/L 02/27/19 1407 Anion Gap 5 MEQ/L L 02/27/19 1407 Blood Urea Nitrogen 15 MG/DL 02/27/19 1407 Creatinine 1.05 MG/DL 02/27/19 1407 Glomerular Filtration Rate > 60.0 02/27/19 1407 Fasting Glucose 117 MG/DL H 02/27/19 1407 Calcium Level 9.1 MG/DL 02/27/19 1407 Total Bilirubin 0.7 MG/DL 02/27/19 1407 Aspartate Amino Transf (AST/SGOT) 10 U/L 02/27/19 1407 Alanine Aminotransferase (ALT/SGPT) 22 U/L 02/27/19 1407 Alkaline Phosphatase 89 U/L 02/27/19 1407 Total Creatine Kinase 92 U/L 02/27/19 1407 Creatine Kinase MB 1.3 NG/ML 02/27/19 1407 Creatine Kinase MB Relative Index 1.41 02/27/19 1407 Troponin I < 0.02 NG/ML 02/27/191406 Total Protein 7.1 GM/DL 02/27/191406 Albumin 4.0 GM/DL 02/27/191406 Albumin/Globulin Ratio 1.29 02/27/191406 Ethyl Alcohol Level < 0.003 % 02/27/191406 Urine Opiates Screen NEGATIVE 02/27/19 140 Urine Methadone Screen NEGATIVE 02/27/191406 Urine Barbiturates Screen NEGATIVE 02/27/191406 Urine Phencyclidine Screen NEGATIVE 02/27/191406 Urine Amphetamines Screen NEGATIVE 02/27/191406 Urine Benzodiazepines Screen NEGATIVE 02/27/191406 Urine Cocaine Metabolite Screen NEGATIVE 02/27/191406 Urine Cannabinoids Screen NEGATIVE 02/27/191406 Discharge Medications Scheduled Betaxolol Hcl (Betaxolol HCl) 0.5% 5ML Drops, 1 DROP OP BID, (Reported) Fluticasone Propionate (Flovent Diskus) 100 Mcg Blst.w.dev, 1 PUFF INH BID, (Reported) Montelukast Sodium (Montelukast Sodium) 10 Mg Tablet, 10 MG PO DAILY, (Reported) Scheduled PRN Albuterol Sulfate (Proair Hfa) 8.5 Gm Hfa.aer.ad, 2 PUFF INH Q4H PRN for SOB/WHEEZING, (Reported) Olopatadine HCl (Olopatadine HCl) 0.2% 2.5ML Drops, 1 DROP OU DAILY PRN for SEASONAL ALLERGIES, (Reported) Ranitidine Hcl (Ranitidine HCl) 150 Mg Tab, 150 MG PO BID PRN for REFLUX/ HEARTBURN, (Reported) Allergies Coded Allergies: codeine (Verified Adverse Reaction, Mild, GI, 10/22/18) LEONEL ALDRIDGE MD Mar 02, 2019 14:21
--- NOTE | 2019-03-03 10:04 | EEG ---
DATE OF EE02/28/2019 REFERRING PHYSICIAN: Dr. Yady Harrington DIAGNOSIS: Seizures. EEG NUMBER: [id number] HISTORY: The patient is a 59-year-old man who was admitted at [facility] due to episodes of passing out and near passing-out spells with panic attacks. This EEG was done to rule out epileptic potential. He is currently taking Ativan, Lovenox, Pepcid, Singulair, etc. TECHNICAL DESCRIPTION: This digital EEG was recorded by 21 scalp, ear and two EKG electrodes and was reviewed in bipolar and referential montages following reformatting in 10-20 international electrode placement system. INTERPRETATION: The patient was noted to be in awake and drowsy states during this EEG. Resting awake background rhythm consisted of well-formed posterior dominant rhythm with anterior/posterior gradient comprising of 11 Hz alpha activity measuring 15-40 microvolts in amplitude, which was symmetric and reactive to eye opening. Attenuation of posterior dominant rhythm was seen during transition into drowsiness. Excessive beta activity was noted in frontal head regions, likely due to medication effect. Stage 1 and 2 sleep were reviewed and were symmetric bilaterally. Hyperventilation could not be performed. Photic stimulation remained unremarkable. EKG revealed normal sinus rhythm. No focal, lateralizing or epileptiform abnormalities were seen. No relevant clinical activity was noted. CONCLUSION: This EEG in awake, drowsy states, stage 1 and 2 sleep is within normal limits.
== END 2019-03-01 11:17 | disposition home or self-care (01) ==
LOC: M ED 12:50 → M ED INP 12:51 → M ICU 20:30
PROVIDERS: ADMIT Internal Medicine Nephrology; ATTEND Internal Medicine Nephrology
DX: F40.01 Agoraphobia with panic disorder (principal); R55 Syncope and collapse; K21.9 Gastro-esophageal reflux disease without esophagitis; N40.0 Benign prostatic hyperplasia without lower urinary tract symptoms; F41.1 Generalized anxiety disorder; F31.9 Bipolar disorder, unspecified; Z79.899 Other long term (current) drug therapy; Z88.5 Allergy status to narcotic agent
CPT/HCPCS: 70450; 71045; 72125; 80053; 80307; 81001; 82550; 82553; 84484; 85027; 93005; 93306; 94640; 94664; 95819; 96361; 96372; 96374; 99285; G0378; G0480; J1650; J2060

== ENCOUNTER → 2019-06-05 | Outpatient (REF) | payer MEDICARE, MEDICAID ==
[~2019-06-05] MED LIST changes: +ALLO100T PO; +BETI1SOL OP; +BREO1INH INH; +ETAN50SY SC; +GABA-845 PO; +LATA0.0015 OP; +METH2.5T48 PO; +MONT10TA2 PO; +OLOP0.2S OU; +OMEP-218 PO; +PROAAER10 INH; +VALT500T PO
[2019-06-05 12:48] LABS: BASO # 0.1 10^3/uL (0.0-0.2); BASO % 0.8 % (0.0-1.0); EOS # 0.3 10^3/uL (0.0-0.5); EOS % 4.5 % (0.0-3.0); HEMOGLOBIN 15.1 g/dl (13.5-17.5); LYMPH # 1.2 10^3/uL (1.5-5.0); LYMPH % 19.3 % (24.0-44.0); MEAN CORPUSCULAR HEMOGLOBIN 28.5 pg (27.0-33.0); MEAN CORPUSCULAR HGB CONC 32.8 g/dl (32.0-36.5); MONO # 0.4 10^3/uL (0.0-0.8); MONO % 7.4 % (0.0-5.0); NEUTROPHILS % 67.7 % (36.0-66.0); PLATELET COUNT, AUTOMATED 170 10^3/uL (150-450); RED BLOOD COUNT 5.29 10^6/uL (4.30-6.10)
[2019-06-05 13:08] LABS: ALBUMIN 4.3 GM/DL (3.2-5.2); ALT/SGPT 22 U/L (12-78); BILIRUBIN,TOTAL 0.7 MG/DL (0.2-1.0); BLOOD UREA NITROGEN 14 MG/DL (7-18); CALCIUM LEVEL 9.3 MG/DL (8.8-10.2); CARBON DIOXIDE LEVEL 30 MEQ/L (21-32); CHLORIDE LEVEL 104 MEQ/L (98-107); CHOLESTEROL LEVEL 173 MG/DL (<200); CHOLESTEROL RISK RATIO 2.883 (<5); CREATININE FOR GFR 1.02 MG/DL (0.70-1.30); GLOMERULAR FILTRATION RATE > 60.0 (>49); GLUCOSE, FASTING 99 MG/DL (70-100); HDL CHOLESTEROL 60 MG/DL (>40); LDL CHOLESTEROL 98 MG/DL (<100); NON-HDL-C 113 MG/DL; POTASSIUM SERUM 3.9 MEQ/L (3.5-5.1); SODIUM LEVEL 140 MEQ/L (136-145); TOTAL 25(OH) VITAMIN D 19.6 NG/ML (30.0-100.0); TOTAL PROTEIN 7.6 GM/DL (6.4-8.2); TOTAL T3 115.4 NG/DL (60.0-181.0); TRIGLYCERIDES LEVEL 76 MG/DL (<150)
== END ==
LOC: M LAB REF 11:16
PROVIDERS: ATTEND Nurse Practitioner Family
DX: Z13.220 Encounter for screening for lipoid disorders (principal); E05.90 Thyrotoxicosis, unspecified without thyrotoxic crisis or storm; Z79.899 Other long term (current) drug therapy
CPT/HCPCS: 80053; 80061; 82306; 84439; 84443; 84480; 85025; G0103

== ENCOUNTER → 2019-07-04 | Outpatient (CLI) | payer MEDICARE, MEDICAID ==
[~2019-07-04] MED LIST changes: -MONT10TA2 PO; +MONT10TA4 PO
--- NOTE | 2019-07-04 10:26 | REP ---
Bilateral lower extremity arterial duplex ultrasound: Right lower extremity: Brachial peak systole: 134 mmHg Dorsalis pedis peak systole : 156 mmHg INVESTMENT STRATEGIST peak systole: 166 mmHg MACIEL peak systole : 1.16. Velocity Phasicity EMAIL PRODUCER 124 triphasic Profunda 135 triphasic SFA prox 118 triphasic SFA mid 97.2 triphasic SFA dist 68.2 triphasic Pop 71.3 triphasic RU prox 47.8 triphasic Tib/P tr 63.1 triphasic INVESTMENT STRATEGIST pr 82.3 triphasic INVESTMENT STRATEGIST dst 122 triphasic UR dst 101 triphasic Left lower extremity: Brachial peak systole: 138 mmHg Dorsalis pedis peak systole : 157 mmHg INVESTMENT STRATEGIST peak systole: 150 a mmHg MACIEL peak systole : 1.14 Velocity Phasicity EMAIL PRODUCER 83.9 triphasic Profunda 82.9 triphasic SFA prox 94.4 triphasic SFA mid 88.2 triphasic SFA dist 69.0 biphasic Pop 69.6 triphasic RU prox 64.0 triphasic Tib/P tr 67.1 triphasic INVESTMENT STRATEGIST pr 133 triphasic INVESTMENT STRATEGIST dst 91.0 triphasic RU dst 91.8 triphasic Impression: There is mild atheromatous plaque bilaterally. There are no stenoses on the right or the left. There are triphasic waveforms bilaterally. Electronically Signed by Tres Guadarrama MD 07/04/2019 10:17 A
== END ==
LOC: M RAD 09:15
PROVIDERS: ATTEND Surgery Vascular Surgery
DX: I73.9 Peripheral vascular disease, unspecified (principal)

== ENCOUNTER → 2019-09-26 | Outpatient (REF) | payer MEDICARE, MEDICAID ==
[2019-09-26 16:52] LABS: BASO # 0.1 10^3/uL (0.0-0.2); BASO % 0.8 % (0.0-1.0); EOS # 0.2 10^3/uL (0.0-0.5); EOS % 2.6 % (0.0-3.0); HEMATOCRIT 44.1 % (42.0-52.0); LYMPH # 1.2 10^3/uL (1.5-5.0); LYMPH % 16.9 % (24.0-44.0); MEAN CORPUSCULAR VOLUME 85.1 fl (80.0-96.0); MONO # 0.6 10^3/uL (0.0-0.8); MONO % 7.5 % (0.0-5.0); NEUTROPHILS # 5.2 10^3/uL (1.5-8.5); NEUTROPHILS % 71.9 % (36.0-66.0); PLATELET COUNT, AUTOMATED 210 10^3/uL (150-450); RED BLOOD COUNT 5.18 10^6/uL (4.30-6.10); WHITE BLOOD COUNT 7.3 10^3/uL (4.0-10.0)
[2019-09-26 17:04] LABS: ALBUMIN 4.2 GM/DL (3.2-5.2); ALT/SGPT 18 U/L (12-78); BILIRUBIN,TOTAL 1.1 MG/DL (0.2-1.0); BLOOD UREA NITROGEN 18 MG/DL (7-18); CARBON DIOXIDE LEVEL 30 MEQ/L (21-32); CHLORIDE LEVEL 105 MEQ/L (98-107); CREATININE FOR GFR 1.03 MG/DL (0.70-1.30); GLOMERULAR FILTRATION RATE > 60.0 (>49); GLUCOSE, FASTING 100 MG/DL (70-100); POTASSIUM SERUM 3.6 MEQ/L (3.5-5.1); SODIUM LEVEL 139 MEQ/L (136-145); TOTAL PROTEIN 7.6 GM/DL (6.4-8.2)
== END ==
LOC: M LAB REF 16:14
PROVIDERS: ATTEND Nurse Practitioner Family
DX: K60.2 Anal fissure, unspecified (principal); K59.00 Constipation, unspecified

== ENCOUNTER → 2020-05-14 | Outpatient (CLI) | payer SELFPAY ==
[~2020-05-14] MED LIST changes: -MONT10TA4 PO; +MONT5TAB2 PO
== END ==
LOC: M LABSMTC 13:04
PROVIDERS: ATTEND Pediatrics
DX: Z20.822 Contact with and (suspected) exposure to COVID-19 (principal)

== ENCOUNTER 2020-08-19 10:05 | Day surgery (SDC) | payer MEDICARE, MEDICAID ==
[~2020-08-19] VITALS: Ht 172.7 cm; Wt 72.1 kg
[~2020-08-19 10:05] MED LIST changes: -BETA0.5S9 OP; +BETA0.5S9 OU; +FLOV100A INH; -FLOV100A3 INH; +MONT10TA10 PO; -MONT5TAB2 PO; +NS 1,000 ML IV ONE; +ZOLO50TA PO
[2020-08-19] MEDS ORDERED: LIDOCAINE 2% 100MG/5ML SDV (FOR ANES.) As Ordered ONE (10:43)
[2020-08-19] MEDS ORDERED: propofoL 200 MG/20 ML VIAL As Ordered ONE (11:08)
--- NOTE | 2020-08-19 12:07 | ROOR ---
Patient Name: Alfie Marie Procedure Date: 08/19/2020 11:49 AM Date of : 1960 Age: 60 Room: [facility] Gender: Male Note Status: Finalized Procedure: Total Colonoscopy to Cecum Indications: Screening in patient at increased risk: Family history of 1st-degree relative with colorectal cancer, High risk colon cancer surveillance: Personal history of colonic polyps Providers: Thong Avendano MD Referring MD: Carri Delgado NP Requesting Provider: Medicines: Monitored Anesthesia Care Complications: No immediate complications. Procedure: Pre-Anesthesia Assessment: - The heart rate, respiratory rate, oxygen saturations, blood pressure, adequacy of pulmonary ventilation, and response to care were monitored throughout the procedure. The Colonoscope was introduced through the anus and advanced to the cecum, identified by appendiceal orifice and ileocecal valve. The colonoscopy was performed without difficulty. The patient tolerated the procedure well. The quality of the bowel preparation was good. Findings: The perianal and digital rectal examinations were normal. Non-bleeding internal hemorrhoids were found during retroflexion. The hemorrhoids were small and Grade I (internal hemorrhoids that do not prolapse). Multiple small and large-mouthed diverticula were found in the recto-sigmoid colon, sigmoid colon and descending colon. The exam was otherwise without abnormality. Retroflexion in the right colon was performed. Impression: - Non-bleeding internal hemorrhoids. - Diverticulosis in the recto-sigmoid colon, in the sigmoid colon and in the descending colon. - The examination was otherwise normal. - No specimens collected. - The exam was otherwise normal to the cecum. Recommendation: - Patient has a contact number available for emergencies. The signs and symptoms of potential delayed complications were discussed with the patient. Return to normal activities tomorrow. Written discharge instructions were provided to the patient. - High fiber diet. - Discharge patient to home. - Continue present medications. - Repeat colonoscopy in 5 years for screening purposes. - Return to referring physician. - The findings and recommendations were discussed with the patient. Procedure Code(s): --- Professional --- G0105, Colorectal cancer screening; colonoscopy on individual at high risk Diagnosis Code(s): --- Professional --- Z80.0, Family history of malignant neoplasm of digestive organs Z86.010, Personal history of colonic polyps K64.0, First degree hemorrhoids K57.30, Diverticulosis of large intestine without perforation or abscess without bleeding CPT copyright 2019 [employer]. All rights reserved. The codes documented in this report are preliminary and upon acoustic intelligence specialist review may be revised to meet current compliance requirements. Thong Avendano MD Thong Avendano MD 08/19/2020 12:06:59 PM Electronically signed by Thong Avendano MD Number of Addenda: 0 Note Initiated On: 08/19/2020 11:49 AM Estimated Blood Loss: Estimated blood loss: none.
[2020-08-19 12:30] VITALS: BP 129/85
== END 2020-08-19 15:35 | disposition home or self-care (01) ==
LOC: M OPP 10:05
PROVIDERS: ATTEND Internal Medicine Gastroenterology
DX: Z12.11 Encounter for screening for malignant neoplasm of colon (principal); Z86.010 Personal history of colon polyps; Z80.0 Family history of malignant neoplasm of digestive organs; K57.30 Diverticulosis of large intestine without perforation or abscess without bleeding; K64.8 Other hemorrhoids; Z79.899 Other long term (current) drug therapy; Z88.5 Allergy status to narcotic agent

== ENCOUNTER → 2020-09-16 | Outpatient (REF) | payer MEDICARE, MEDICAID ==
[~2020-09-16] MED LIST changes: +GABA-283 PO; -GABA-845 PO; -NS 1,000 ML IV ONE
[2020-09-16 16:40] LABS: BASO # 0.1 10^3/uL (0.0-0.2); BASO % 1.1 % (0.0-1.0); EOS # 0.3 10^3/uL (0.0-0.5); EOS % 4.8 % (0.0-3.0); HEMATOCRIT 46.8 % (42.0-52.0); HEMOGLOBIN 15.6 g/dl (13.5-17.5); LYMPH # 1.3 10^3/uL (1.5-5.0); MEAN CORPUSCULAR HEMOGLOBIN 28.8 pg (27.0-33.0); MEAN CORPUSCULAR HGB CONC 33.3 g/dl (32.0-36.5); MEAN CORPUSCULAR VOLUME 86.3 fl (80.0-96.0); MONO # 0.5 10^3/uL (0.0-0.8); MONO % 7.4 % (2.0-8.0); NEUTROPHILS # 4.3 10^3/uL (1.5-8.5); NEUTROPHILS % 66.5 % (36.0-66.0); PLATELET COUNT, AUTOMATED 214 10^3/uL (150-450); RED BLOOD COUNT 5.42 10^6/uL (4.30-6.10); WHITE BLOOD COUNT 6.5 10^3/uL (4.0-10.0)
[2020-09-16 17:01] LABS: ALBUMIN 4.3 GM/DL (3.2-5.2); ALT/SGPT 23 U/L (12-78); BILIRUBIN,TOTAL 0.6 MG/DL (0.2-1.0); BLOOD UREA NITROGEN 25 MG/DL (7-18); CALCIUM LEVEL 9.8 MG/DL (8.8-10.2); CARBON DIOXIDE LEVEL 29 MEQ/L (21-32); CHLORIDE LEVEL 105 MEQ/L (98-107); CHOLESTEROL LEVEL 203 MG/DL (<200); CREATININE FOR GFR 1.13 MG/DL (0.70-1.30); GLOMERULAR FILTRATION RATE > 60.0 (>49); GLUCOSE, FASTING 103 MG/DL (70-100); HDL CHOLESTEROL 51 MG/DL (>40); LDL CHOLESTEROL 128 MG/DL (<100); NON-HDL-C 152 MG/DL; POTASSIUM SERUM 4.5 MEQ/L (3.5-5.1); SODIUM LEVEL 140 MEQ/L (136-145); TOTAL PROTEIN 7.7 GM/DL (6.4-8.2); TRIGLYCERIDES LEVEL 122 MG/DL (<150)
== END ==
LOC: M LAB REF 16:00
PROVIDERS: ATTEND Nurse Practitioner Family
DX: Z01.818 Encounter for other preprocedural examination (principal); H26.9 Unspecified cataract; Z79.899 Other long term (current) drug therapy

== ENCOUNTER → 2022-08-31 | Outpatient (REF) | payer MEDICARE, MEDICAID ==
[~2022-08-31] MED LIST changes: +BETA0.5S11 OU; -BETA0.5S9 OU; -BETI1SOL OP; -MONT10TA10 PO; +MONT10TA97 PO; -OLOP0.2S OU; +OLOP2.5D7 OU; +OMEP-173 PO; -OMEP-218 PO; +TIMO5DRO5 OP
[2022-08-31 14:55] LABS: BASO # 0.1 10^3/uL (0.0-0.2); BASO % 0.9 % (0.0-1.0); EOS # 0.3 10^3/uL (0.0-0.5); HEMATOCRIT 46.3 % (42.0-52.0); HEMOGLOBIN 15.5 g/dl (13.5-17.5); LYMPH # 1.3 10^3/uL (1.5-5.0); LYMPH % 19.3 % (24.0-44.0); MEAN CORPUSCULAR HEMOGLOBIN 28.9 pg (27.0-33.0); MEAN CORPUSCULAR HGB CONC 33.5 g/dl (32.0-36.5); MEAN CORPUSCULAR VOLUME 86.4 fl (80.0-96.0); MONO # 0.5 10^3/uL (0.0-0.8); MONO % 6.6 % (2.0-8.0); NEUTROPHILS # 4.8 10^3/uL (1.5-8.5); NEUTROPHILS % 68.9 % (36.0-66.0); PLATELET COUNT, AUTOMATED 199 10^3/uL (150-450); RED BLOOD COUNT 5.36 10^6/uL (4.30-6.10); WHITE BLOOD COUNT 6.9 10^3/uL (4.0-10.0)
[2022-08-31 14:59] LABS: ALBUMIN 4.2 G/DL (3.2-5.2); ALKALINE PHOSPHATASE 82 U/L (46-116); ALT/SGPT 34 U/L (7.0-40); AST/SGOT 10 U/L (<34); BILIRUBIN,TOTAL 0.7 MG/DL (0.3-1.2); BLOOD UREA NITROGEN 17 MG/DL (9-23); CALCIUM LEVEL 9.1 MG/DL (8.3-10.6); CARBON DIOXIDE LEVEL 30 MMOL/L (20-31); CHLORIDE LEVEL 105 MMOL/L (98-107); CHOLESTEROL LEVEL 178 MG/DL (<200); CREATININE FOR GFR 1.06 MG/DL (0.70-1.30); GLOMERULAR FILTRATION RATE > 60.0 (>49); GLUCOSE, FASTING 107 MG/DL (74-106); HDL CHOLESTEROL 44.4 MG/DL (>40); LDL CHOLESTEROL 121.6 MG/DL (<100); NON-HDL-C 133.6 MG/DL; POTASSIUM SERUM 4.1 MMOL/L (3.5-5.1); SODIUM LEVEL 141 MMOL/L (136-145); TOTAL PROTEIN 6.1 G/DL (5.7-8.2); TRIGLYCERIDES LEVEL 60 MG/DL (<150)
[2022-08-31 15:00] LABS: THYROID STIMULATING HORMONE 3.148 uIU/ML (0.55-4.78)
[2022-08-31 16:34] LABS: HEMOGLOBIN A1c 5.3 % (4.0-6.0)
== END ==
LOC: M LAB REF 12:27
PROVIDERS: ATTEND Nurse Practitioner Family
DX: Z13.228 Encounter for screening for other metabolic disorders (principal)

== ENCOUNTER → 2023-10-03 | Outpatient (REF) | payer MEDICARE, MEDICAID ==
[~2023-10-03] MED LIST changes: -GABA-283 PO; +GABA-284 PO; -KLON0.5T PO; +KLON0.5T8 PO
[2023-10-03 13:59] LABS: ALBUMIN 4.2 G/DL (3.2-5.2); ALKALINE PHOSPHATASE 84 U/L (46-116); ALT/SGPT 22 U/L (7.0-40); AST/SGOT 12 U/L (<34); BILIRUBIN,TOTAL 0.6 MG/DL (0.3-1.2); BLOOD UREA NITROGEN 19 MG/DL (9-23); CALCIUM LEVEL 9.4 MG/DL (8.3-10.6); CARBON DIOXIDE LEVEL 32 MMOL/L (20-31); CHLORIDE LEVEL 105 MMOL/L (98-107); CHOLESTEROL LEVEL 169 MG/DL (<200); CHOLESTEROL RISK RATIO 3.61 (<5); CREATININE FOR GFR 1.01 MG/DL (0.70-1.30); GLOMERULAR FILTRATION RATE > 60.0 (>49); GLUCOSE, FASTING 103 MG/DL (74-106); HDL CHOLESTEROL 46.7 MG/DL (>40); LDL CHOLESTEROL 101.1 MG/DL (<100); NON-HDL-C 122.3 MG/DL; POTASSIUM SERUM 3.9 MMOL/L (3.5-5.1); SODIUM LEVEL 139 MMOL/L (136-145); TOTAL PROTEIN 7.3 G/DL (5.7-8.2); TRIGLYCERIDES LEVEL 106 MG/DL (<150)
[2023-10-03 14:05] LABS: BASO # 0.1 10^3/uL (0.0-0.2); BASO % 1.1 % (0.0-1.0); EOS # 0.3 10^3/uL (0.0-0.5); EOS % 4.7 % (0.0-3.0); HEMATOCRIT 46.3 % (42.0-52.0); HEMOGLOBIN 15.8 g/dl (13.5-17.5); LYMPH # 1.4 10^3/uL (1.5-5.0); LYMPH % 21.1 % (24.0-44.0); MEAN CORPUSCULAR HEMOGLOBIN 29.3 pg (27.0-33.0); MEAN CORPUSCULAR HGB CONC 34.1 g/dl (32.0-36.5); MEAN CORPUSCULAR VOLUME 85.7 fl (80.0-96.0); MONO # 0.4 10^3/uL (0.0-0.8); MONO % 6.7 % (2.0-8.0); NEUTROPHILS # 4.3 10^3/uL (1.5-8.5); NEUTROPHILS % 66.1 % (36.0-66.0); PLATELET COUNT, AUTOMATED 190 10^3/uL (150-450); WHITE BLOOD COUNT 6.5 10^3/uL (4.0-10.0)
== END ==
LOC: M LAB REF 12:41
PROVIDERS: ATTEND Nurse Practitioner Family
DX: J45.909 Unspecified asthma, uncomplicated (principal); Z13.220 Encounter for screening for lipoid disorders; Z79.899 Other long term (current) drug therapy

== ENCOUNTER → 2024-11-12 | Outpatient (REF) | payer MEDICARE, MEDICAID ==
[2024-11-12 18:52] LABS: AMORPHOUS SEDIMENT SMALL (NEGATIVE); APPEARANCE, URINE CLOUDY (CLEAR); BACTERIA, URINE AUTO NEGATIVE (NEGATIVE); BILIRUBIN, URINE AUTO NEGATIVE (NEGATIVE); BLOOD, URINE BLOOD NEGATIVE (NEGATIVE); GLUCOSE, URINE (UA) AUTO NEGATIVE (NEGATIVE); KETONE, URINE AUTO NEGATIVE (NEGATIVE); LEUKOCYTE ESTERASE, URINE AUTO NEGATIVE (NEGATIVE); MUCUS, URINE SMALL (NEGATIVE); NITRITE, URINE AUTO NEGATIVE (NEGATIVE); PROTEIN, URINE AUTO NEGATIVE (NEGATIVE); RBC, URINE AUTO 2 /HPF (0-3); SPECIFIC GRAVITY URINE AUTO 1.016 (1.002-1.035); SQUAMOUS EPITHELIAL CELL UR AU 0 /HPF (0-6); UROBILINOGEN, URINE AUTO 0.2 mg/dL (0.0-2.0); WBC, URINE AUTO 1 /HPF (0-3)
== END ==
LOC: M LAB REF 17:11
PROVIDERS: ATTEND Nurse Practitioner Family
DX: N40.0 Benign prostatic hyperplasia without lower urinary tract symptoms (principal); Z12.5 Encounter for screening for malignant neoplasm of prostate
CPT/HCPCS: 81001; G0103